=== PATIENT | female | born 1975 | race Caucasian/White ===

== ENCOUNTER → 2016-05-04 | Outpatient (CLI) | payer MEDICAID ==
[~2016-05-04] MED LIST: ABILIFY 10MG TA10 MG PO; AMOXICILLIN 8751 TAB PO; ATIVAN 0.50.5 MG/TAB PO; ATIVAN1 MG PO; BRINTELLIX10; BUSPAR5 MG PO; CLINDAMYCIN HC300 MG PO; CYMBALTA30 MG PO; DILAUDID8 M1 PO; DOXYCYCLINE 10100 MG PO; FLEXERIL 1010 MG/TAB PO; FLONASE NASAL S16 GM NS; HYDROMORPHONE HY8 MG PO; IBS MEDICATION; LAMICTAL150 MG PO; LYRICA300 MG PO; MIRENA52 MG IU; NEXIUM 20MG20 MG PO; OPANA ER20 MG PO; OPANA PO; OPANA10 MG PO; PHENERGAN 25 TA25 MG PO; PHENERGAN25 MG RC; PROAIR HFA0.09 MG/AC IH; REMERON45 MG PO; ULTRAM 50MG TAB50 MG PO; ZOFRAN 4MG T4 MG/TAB PO; ZOFRAN ODT4 MG PO; ZOFRAN ODT8 MG PO; ZOLOFT 50MG50 MG PO; [UNRECOGNIZED DRUG - REMARK]
== END ==
LOC: COL.RAD 07:26
DX: Q85.8 Other phakomatoses, not elsewhere classified (principal); M50.022 Cervical disc disorder at C5-C6 level with myelopathy; R90.89 Other abnormal findings on diagnostic imaging of central nervous system; M62.81 Muscle weakness (generalized); R20.2 Paresthesia of skin
CPT/HCPCS: A9585

== ENCOUNTER → 2016-07-26 | Outpatient (CLI) | payer MEDICAID | LOC: COL.RAD 12:25 | DX: R22.31 Localized swelling, mass and lump, right upper limb (principal) ==

== ENCOUNTER 2016-10-05 09:47 | Emergency (ER) | payer MEDICAID ==
[~2016-10-05] VITALS: Ht 160 cm; Wt 77.3 kg
[~2016-10-05 09:47] MED LIST changes: -BRINTELLIX10; -FLONASE NASAL S16 GM NS; -NEXIUM 20MG20 MG PO; -PHENERGAN 25 TA25 MG PO; -PHENERGAN25 MG RC; -PROAIR HFA0.09 MG/AC IH; -ULTRAM 50MG TAB50 MG PO; -ZOFRAN 4MG T4 MG/TAB PO; -ZOFRAN ODT4 MG PO; -ZOFRAN ODT8 MG PO
[2016-10-05 09:53] VITALS: TEMP 98.6
[2016-10-05 10:33] LABS: BASO % 0.4 % (0.0-2.0); EOS # 0.1 (0.0-0.7); EOS % 1.3 % (0-4.0); GRAN # 6.8 (1.4-6.5); GRAN % 72.7 % (42.2-75.2); HEMATOCRIT 46.4 % (37.0-47.0); HEMOGLOBIN 15.8 g/dl (12.5-16.0); LYMPH # 1.9 (1.2-3.4); LYMPH % 20.2 % (20.0-51.0); MEAN CELL VOLUME 92 fl (80.0-100.0); MEAN CORPUSCULAR HEMOGLOBIN 31 pg (27.0-31.0); MEAN CORPUSCULAR HGB CONC 34 g/dl (33.0-37.0); MONO # 0.5 (0.1-0.6); MONO % 5.1 % (1.7-9.3); PLATELET COUNT 201 K/mm3 (130-400); RED BLOOD COUNT 5.06 M/mm3 (4.10-5.30); REDCELL DISTRIBUTION WIDTH-CV 12.6 % (11.5-14.5); WHITE BLOOD COUNT 9.3 K/mm3 (4.8-10.8)
[2016-10-05 10:41] LABS: PH 5 (5-8); URINE APPEARANCE Hazy; URINE BACTERIA None Seen /hpf; URINE BILIRUBIN Positive (NEGATIVE); URINE BLOOD Negative (NEGATIVE); URINE COLOR Amber; URINE GLUCOSE Negative (NEGATIVE); URINE KETONE Trace (NEGATIVE)
[2016-10-05 11:30] LABS: ADJUSTED CALCIUM 9.4 mg/dL (8.4-10.2); ALANINE AMINOTRANSFERASE 19 U/L (9-52); ALBUMIN 4.6 gm/dL (3.5-5.0); ALKALINE PHOSPHATASE 91 U/L (50-136); ANION GAP 14 mmol/L (7-16); BILIRUBIN,TOTAL 0.8 mg/dL (0.0-1.0); BLOOD UREA NITROGEN 17 mg/dL (7-17); CALCIUM 9.9 mg/dL (8.4-10.2); CARBON DIOXIDE 25 mmol/L (22-30); CHLORIDE 104 mmol/L (98-107); GLUCOSE 106 mg/dL (74-106); LIPASE 62 U/L (23-300); POTASSIUM 3.8 mmol/L (3.4-5.0); SODIUM 143 mmol/L (137-145)
[2016-10-05 11:35] LABS: C-REACTIVE PROTEIN < 0.5 mg/dL (0.0-0.9)
[2016-10-05] MEDS ORDERED: ZOFRAN 4MG T4 MG/TAB PO (14:24)
[2016-10-05 15:03] VITALS: BP 114/64; PULSE 68
== END 2016-10-05 14:50 | disposition home or self-care (01) ==
LOC: COL.ER 09:47
PROVIDERS: Emergency Medicine
DX: R10.11 Right upper quadrant pain (principal); Q85.00 Neurofibromatosis, unspecified; G40.909 Epilepsy, unspecified, not intractable, without status epilepticus; F31.9 Bipolar disorder, unspecified
CPT/HCPCS: J1170; J2405; J7030

== ENCOUNTER 2016-10-08 12:36 | Emergency (ER) | payer MEDICAID ==
[~2016-10-08] VITALS: Ht 160 cm; Wt 75.0 kg
[~2016-10-08 12:36] MED LIST changes: +ZOFRAN 4MG T4 MG/TAB PO
[2016-10-08 12:38] VITALS: TEMP 98.1
[2016-10-08] MEDS ORDERED: BRINTELLIX10 (12:44)
[2016-10-08] MEDS ORDERED: PROAIR HFA0.09 MG/AC IH (12:45)
[2016-10-08] MEDS ORDERED: FLONASE NASAL S16 GM NS (12:45)
[2016-10-08 13:15] LABS: BASO # 0.1 (0.0-0.2); BASO % 0.5 % (0.0-2.0); EOS # 0.2 (0.0-0.7); EOS % 1.8 % (0-4.0); HEMOGLOBIN 15.4 g/dl (12.5-16.0); LYMPH # 2.6 (1.2-3.4); LYMPH % 27.6 % (20.0-51.0); MEAN CELL VOLUME 91 fl (80.0-100.0); MEAN CORPUSCULAR HEMOGLOBIN 31 pg (27.0-31.0); MEAN CORPUSCULAR HGB CONC 34 g/dl (33.0-37.0); MONO # 0.6 (0.1-0.6); MONO % 5.8 % (1.7-9.3); PLATELET COUNT 203 K/mm3 (130-400); RED BLOOD COUNT 4.96 M/mm3 (4.10-5.30); REDCELL DISTRIBUTION WIDTH-CV 12.6 % (11.5-14.5); WHITE BLOOD COUNT 9.4 K/mm3 (4.8-10.8)
[2016-10-08 13:25] LABS: PH 5 (5-8); URINE APPEARANCE Hazy; URINE BACTERIA None Seen /hpf; URINE BILIRUBIN Positive (NEGATIVE); URINE BLOOD Negative (NEGATIVE); URINE COLOR Amber; URINE GLUCOSE Negative (NEGATIVE); URINE KETONE Trace (NEGATIVE); URINE WBC 0-2 /hpf
[2016-10-08 13:28] LABS: ADJUSTED CALCIUM 8.9 mg/dL (8.4-10.2); ALANINE AMINOTRANSFERASE 17 U/L (9-52); ALBUMIN 4.6 gm/dL (3.5-5.0); ALKALINE PHOSPHATASE 80 U/L (50-136); ANION GAP 15 mmol/L (7-16); BILIRUBIN,TOTAL 0.7 mg/dL (0.0-1.0); BLOOD UREA NITROGEN 14 mg/dL (7-17); CALCIUM 9.4 mg/dL (8.4-10.2); CARBON DIOXIDE 25 mmol/L (22-30); CHLORIDE 102 mmol/L (98-107); CREATININE, serum 0.78 mg/dL (0.52-1.25); GLUCOSE 108 mg/dL (74-106); LIPASE 172 U/L (23-300); POTASSIUM 3.5 mmol/L (3.4-5.0); SODIUM 141 mmol/L (137-145)
[2016-10-08 13:31] LABS: C-REACTIVE PROTEIN < 0.5 mg/dL (0.0-0.9)
[2016-10-08] MEDS ORDERED: PHENERGAN 25 TA25 MG PO (14:05)
[2016-10-08] MEDS ORDERED: NEXIUM 20MG20 MG PO (14:06)
[2016-10-08 14:51] VITALS: BP 123/74; PULSE 67
== END 2016-10-08 14:52 | disposition home or self-care (01) ==
LOC: COL.ER 12:36
PROVIDERS: Emergency Medicine
DX: R10.11 Right upper quadrant pain (principal); R11.2 Nausea with vomiting, unspecified; R63.0 Anorexia
CPT/HCPCS: C9113; J1170; J1200; J2405; J2550; J7030

== ENCOUNTER → 2016-10-29 | Outpatient (CLI) | payer MEDICAID ==
[~2016-10-29] MED LIST changes: +BRINTELLIX10; +FLONASE NASAL S16 GM NS; +NEXIUM 20MG20 MG PO; +PHENERGAN 25 TA25 MG PO; +PHENERGAN25 MG RC; +PROAIR HFA0.09 MG/AC IH; +ULTRAM 50MG TAB50 MG PO; +ZOFRAN ODT4 MG PO; +ZOFRAN ODT8 MG PO
== END ==
LOC: COL.RAD 10:10
DX: R10.11 Right upper quadrant pain (principal); R11.2 Nausea with vomiting, unspecified
CPT/HCPCS: A9537

== ENCOUNTER 2016-12-16 10:48 | Emergency (ER) | payer MEDICAID ==
[~2016-12-16] VITALS: Ht 162.6 cm; Wt 75.0 kg
[~2016-12-16 10:48] MED LIST changes: -PHENERGAN25 MG RC; -ULTRAM 50MG TAB50 MG PO; -ZOFRAN ODT4 MG PO; -ZOFRAN ODT8 MG PO
[2016-12-16 10:50] VITALS: BP 134/86; TEMP 98.9
[2016-12-16 11:29] LABS: BASO % 0.3 % (0.0-2.0); EOS % 0.3 % (0-4.0); GRAN # 7.1 (1.4-6.5); GRAN % 81.4 % (42.2-75.2); HEMATOCRIT 46.9 % (37.0-47.0); LYMPH # 1.3 (1.2-3.4); LYMPH % 14.5 % (20.0-51.0); MEAN CELL VOLUME 91 fl (80.0-100.0); MEAN CORPUSCULAR HEMOGLOBIN 31 pg (27.0-31.0); MEAN CORPUSCULAR HGB CONC 34 g/dl (33.0-37.0); MEAN PLATELET VOLUME 12.2 fl (7.4-10.4); MONO # 0.2 (0.1-0.6); MONO % 2.8 % (1.7-9.3); PLATELET COUNT 169 K/mm3 (130-400); RED BLOOD COUNT 5.16 M/mm3 (4.10-5.30); REDCELL DISTRIBUTION WIDTH-CV 13.6 % (11.5-14.5); WHITE BLOOD COUNT 8.7 K/mm3 (4.8-10.8)
[2016-12-16 11:41] LABS: ADJUSTED CALCIUM 9.8 mg/dL (8.4-10.2); ALBUMIN 4.6 gm/dL (3.5-5.0); BILIRUBIN,TOTAL 0.6 mg/dL (0.0-1.0); C-REACTIVE PROTEIN 1.7 mg/dL (0.0-0.9); CALCIUM 10.3 mg/dL (8.4-10.2); CREATININE, serum 0.67 mg/dL (0.52-1.25); POTASSIUM 3.7 mmol/L (3.4-5.0); TOTAL PROTEIN 8.3 gm/dL (6.4-8.2)
[2016-12-16] MEDS ORDERED: ZOFRAN ODT4 MG PO (12:25)
[2016-12-16 12:47] VITALS: PULSE 82
[2016-12-16] MEDS ORDERED: PHENERGAN25 MG RC (21:05)
[2016-12-16] MEDS ORDERED: ULTRAM 50MG TAB50 MG PO (21:05)
[2016-12-16] MEDS ORDERED: ZOFRAN ODT8 MG PO (21:05)
== END 2016-12-16 12:48 | disposition home or self-care (01) ==
LOC: COL.ER 10:48
PROVIDERS: Nurse Practitioner
DX: R11.2 Nausea with vomiting, unspecified (principal); G89.29 Other chronic pain; M54.9 Dorsalgia, unspecified; F17.210 Nicotine dependence, cigarettes, uncomplicated; Z86.018 Personal history of other benign neoplasm
CPT/HCPCS: J1170; J2550; J7030

== ENCOUNTER 2016-12-16 19:17 | Emergency (ER) | payer MEDICAID ==
[~2016-12-16] VITALS: Ht 160 cm; Wt 75.0 kg
[~2016-12-16 19:17] MED LIST changes: +ZOFRAN ODT4 MG PO
[2016-12-16 19:20] VITALS: TEMP 98.6
[2016-12-16 20:15] LABS: BASO % 0.2 % (0.0-2.0); EOS % 0.2 % (0-4.0); GRAN # 7.5 (1.4-6.5); GRAN % 78.8 % (42.2-75.2); HEMOGLOBIN 15.4 g/dl (12.5-16.0); LYMPH # 1.5 (1.2-3.4); LYMPH % 15.9 % (20.0-51.0); MEAN CELL VOLUME 91 fl (80.0-100.0); MEAN CORPUSCULAR HEMOGLOBIN 31 pg (27.0-31.0); MEAN CORPUSCULAR HGB CONC 34 g/dl (33.0-37.0); MEAN PLATELET VOLUME 12.4 fl (7.4-10.4); MONO # 0.4 (0.1-0.6); MONO % 4.2 % (1.7-9.3); PLATELET COUNT 178 K/mm3 (130-400); RED BLOOD COUNT 4.97 M/mm3 (4.10-5.30); REDCELL DISTRIBUTION WIDTH-CV 13.8 % (11.5-14.5); WHITE BLOOD COUNT 9.5 K/mm3 (4.8-10.8)
[2016-12-16 20:20] LABS: PH 7 (5-8); SQUAMOUS EPITHELIAL 0-2 /hpf; URINE APPEARANCE Clear; URINE BACTERIA Rare /hpf; URINE COLOR Yellow; URINE RBC 0-2 /hpf; URINE WBC 0-2 /hpf
[2016-12-16 20:21] LABS: URINE BILIRUBIN Negative (NEGATIVE); URINE BLOOD Negative (NEGATIVE); URINE GLUCOSE Negative (NEGATIVE); URINE KETONE Negative (NEGATIVE); URINE UROBILINOGEN Negative (NEGATIVE)
[2016-12-16 20:22] LABS: ADJUSTED CALCIUM 9.6 mg/dL (8.4-10.2); ALBUMIN 4.4 gm/dL (3.5-5.0); BILIRUBIN,TOTAL 0.6 mg/dL (0.0-1.0); C-REACTIVE PROTEIN 1.2 mg/dL (0.0-0.9); CALCIUM 9.9 mg/dL (8.4-10.2); CREATININE, serum 0.61 mg/dL (0.52-1.25); POTASSIUM 3.7 mmol/L (3.4-5.0); TOTAL PROTEIN 7.9 gm/dL (6.4-8.2)
[2016-12-16 20:44] LABS: ERYTHROCYTE SEDIMENTATION RATE 14 mm/hr (0-20)
[2016-12-16] MEDS ORDERED: ULTRAM 50MG TAB50 MG PO (21:05)
[2016-12-16] MEDS ORDERED: PHENERGAN25 MG RC (21:05)
[2016-12-16] MEDS ORDERED: ZOFRAN ODT8 MG PO (21:05)
[2016-12-16 21:26] VITALS: BP 95/48; PULSE 69
== END 2016-12-16 21:27 | disposition home or self-care (01) ==
LOC: COL.ER 19:17
PROVIDERS: Emergency Medicine
DX: R11.10 Vomiting, unspecified (principal); R10.9 Unspecified abdominal pain; G89.29 Other chronic pain; M54.9 Dorsalgia, unspecified; F17.210 Nicotine dependence, cigarettes, uncomplicated; Z87.19 Personal history of other diseases of the digestive system
CPT/HCPCS: J1170; J2405; J7030; Q9967

== ENCOUNTER 2017-01-17 16:44 | Emergency (ER) | payer MEDICAID ==
[~2017-01-17] VITALS: Ht 160 cm; Wt 68.8 kg
[~2017-01-17 16:44] MED LIST changes: +PHENERGAN25 MG RC; +ULTRAM 50MG TAB50 MG PO; +ZOFRAN ODT8 MG PO
[2017-01-17 16:47] VITALS: TEMP 98.2
[2017-01-17 17:29] LABS: BASO % 0.3 % (0.0-2.0); EOS % 0.1 % (0-4.0); GRAN # 7.4 (1.4-6.5); GRAN % 77.9 % (42.2-75.2); HEMATOCRIT 50.8 % (37.0-47.0); HEMOGLOBIN 17.2 g/dl (12.5-16.0); LYMPH # 1.6 (1.2-3.4); MEAN CELL VOLUME 91 fl (80.0-100.0); MEAN CORPUSCULAR HEMOGLOBIN 31 pg (27.0-31.0); MEAN CORPUSCULAR HGB CONC 34 g/dl (33.0-37.0); MEAN PLATELET VOLUME 12.5 fl (7.4-10.4); MONO # 0.4 (0.1-0.6); MONO % 4.5 % (1.7-9.3); PLATELET COUNT 207 K/mm3 (130-400); RED BLOOD COUNT 5.57 M/mm3 (4.10-5.30); WHITE BLOOD COUNT 9.6 K/mm3 (4.8-10.8)
[2017-01-17 17:34] LABS: PH 5 (5-8); URINE APPEARANCE Hazy; URINE BACTERIA None Seen /hpf; URINE BILIRUBIN Positive (NEGATIVE); URINE BLOOD Negative (NEGATIVE); URINE COLOR Amber; URINE GLUCOSE Negative (NEGATIVE); URINE KETONE 1+ (NEGATIVE); URINE RBC 0-2 /hpf; URINE UROBILINOGEN >=4.0 mg/dL (NEGATIVE)
[2017-01-17 17:43] LABS: ADJUSTED CALCIUM 9.7 mg/dL (8.4-10.2); ALANINE AMINOTRANSFERASE 14 U/L (9-52); ALKALINE PHOSPHATASE 106 U/L (50-136); ANION GAP 15 mmol/L (7-16); BILIRUBIN,TOTAL 0.7 mg/dL (0.0-1.0); BLOOD UREA NITROGEN 19 mg/dL (7-17); CALCIUM 10.5 mg/dL (8.4-10.2); CARBON DIOXIDE 22 mmol/L (22-30); CHLORIDE 107 mmol/L (98-107); GLUCOSE 128 mg/dL (74-106); LIPASE 38 U/L (23-300); POTASSIUM 3.7 mmol/L (3.4-5.0); SODIUM 143 mmol/L (137-145); TOTAL PROTEIN 8.9 gm/dL (6.4-8.2)
[2017-01-17 17:46] LABS: C-REACTIVE PROTEIN < 0.5 mg/dL (0.0-0.9)
[2017-01-17] MEDS ORDERED: PHENERGAN25 MG RC (18:15)
[2017-01-17 18:27] VITALS: BP 114/62; PULSE 78
== END 2017-01-17 18:31 | disposition home or self-care (01) ==
LOC: COL.ER 16:44
PROVIDERS: Family Medicine
DX: E86.0 Dehydration (principal); R11.2 Nausea with vomiting, unspecified; R19.7 Diarrhea, unspecified; R10.9 Unspecified abdominal pain; Q85.00 Neurofibromatosis, unspecified
CPT/HCPCS: J1170; J2550; J7030

== ENCOUNTER 2017-02-16 18:12 | Emergency (ER) | payer MEDICAID ==
[~2017-02-16] VITALS: Ht 160 cm; Wt 70.5 kg
[2017-02-16 18:15] VITALS: TEMP 98.1
[2017-02-16 18:56] LABS: BASO % 0.3 % (0.0-2.0); EOS % 0.3 % (0-4.0); GRAN # 8.7 (1.4-6.5); GRAN % 76.3 % (42.2-75.2); HEMATOCRIT 45.3 % (37.0-47.0); HEMOGLOBIN 15.6 g/dl (12.5-16.0); LYMPH # 1.9 (1.2-3.4); LYMPH % 16.8 % (20.0-51.0); MEAN CELL VOLUME 92 fl (80.0-100.0); MEAN CORPUSCULAR HEMOGLOBIN 32 pg (27.0-31.0); MEAN CORPUSCULAR HGB CONC 34 g/dl (33.0-37.0); MONO # 0.7 (0.1-0.6); MONO % 5.8 % (1.7-9.3); PLATELET COUNT 213 K/mm3 (130-400); RED BLOOD COUNT 4.94 M/mm3 (4.10-5.30); WHITE BLOOD COUNT 11.4 K/mm3 (4.8-10.8)
[2017-02-16 19:03] LABS: COLLECTION METHOD CLEAN CATCH
[2017-02-16 19:07] LABS: ADJUSTED CALCIUM 9.7 mg/dL (8.4-10.2); ALBUMIN 4.5 gm/dL (3.5-5.0); BILIRUBIN,TOTAL 0.6 mg/dL (0.0-1.0); CALCIUM 10.1 mg/dL (8.4-10.2); CREATININE, serum 0.69 mg/dL (0.52-1.25); POTASSIUM 3.4 mmol/L (3.4-5.0); TOTAL PROTEIN 7.8 gm/dL (6.4-8.2)
[2017-02-16 19:09] LABS: MUCOUS Present /lpf; PH 5 (5-8); SQUAMOUS EPITHELIAL 0-2 /hpf; URINE APPEARANCE Clear; URINE BACTERIA None Seen /hpf; URINE BILIRUBIN Negative (NEGATIVE); URINE BLOOD 2+ (NEGATIVE); URINE COLOR Amber; URINE GLUCOSE Negative (NEGATIVE); URINE KETONE Trace (NEGATIVE); URINE LEUKOCYTE ESTERASE Negative (NEGATIVE); URINE PROTEIN(semi-quant) 1+ (NEGATIVE); URINE RBC 0-2 /hpf; URINE WBC 0-2 /hpf
[2017-02-16] MEDS ORDERED: ZOFRAN ODT4 MG PO (19:41)
[2017-02-16 19:54] VITALS: BP 119/69; PULSE 80
== END 2017-02-16 19:54 | disposition home or self-care (01) ==
LOC: COL.ER 18:12
PROVIDERS: Emergency Medicine
DX: R11.2 Nausea with vomiting, unspecified (principal); R19.7 Diarrhea, unspecified; G89.29 Other chronic pain; M54.9 Dorsalgia, unspecified; F17.210 Nicotine dependence, cigarettes, uncomplicated; Z98.890 Other specified postprocedural states
CPT/HCPCS: J1170; J2405; J7030

== ENCOUNTER 2017-03-12 12:10 | Day surgery (SDC) | payer MEDICAID ==
[~2017-03-12] VITALS: Ht 160 cm; Wt 69.5 kg
[2017-03-12 12:40] VITALS: BP 125/73; PULSE 86; TEMP 98.3
[2017-03-12] MEDS ORDERED: PRIL40 PO (12:55)
[2017-03-12] MEDS ORDERED: OPANA10 MG PO (12:56)
[2017-03-12] MEDS ORDERED: SPIRIVA RESPIMAT4 GM IH (12:57)
[2017-03-12 14:27] VITALS: BP 132/73; PULSE 70; TEMP 97.3
[2017-03-12 14:42] VITALS: BP 131/80; PULSE 75
[2017-03-12 14:57] VITALS: BP 124/75; PULSE 69
[2017-03-12 15:12] VITALS: BP 122/67; PULSE 75
== END 2017-03-12 15:43 | disposition home or self-care (01) ==
LOC: SDCO 12:10
DX: K29.30 Chronic superficial gastritis without bleeding (principal); R63.4 Abnormal weight loss; R10.11 Right upper quadrant pain; R93.3 Abnormal findings on diagnostic imaging of other parts of digestive tract; K64.0 First degree hemorrhoids; K21.9 Gastro-esophageal reflux disease without esophagitis; Q85.8 Other phakomatoses, not elsewhere classified; J45.909 Unspecified asthma, uncomplicated; G89.29 Other chronic pain; M54.9 Dorsalgia, unspecified; F17.210 Nicotine dependence, cigarettes, uncomplicated; Z79.891 Long term (current) use of opiate analgesic; G40.909 Epilepsy, unspecified, not intractable, without status epilepticus; Z68.27 Body mass index [BMI] 27.0-27.9, adult; Q85.00 Neurofibromatosis, unspecified; F32.9 Major depressive disorder, single episode, unspecified
CPT/HCPCS: OP; J2704; J3010; J7120

== ENCOUNTER 2017-03-16 19:19 | Emergency (ER) | payer MEDICAID ==
[~2017-03-16] VITALS: Ht 160 cm; Wt 63.6 kg
[~2017-03-16 19:19] MED LIST changes: +PRIL40 PO; +SPIRIVA RESPIMAT4 GM IH
[2017-03-16 19:23] VITALS: BP 140/97; TEMP 97.7
[2017-03-16 20:11] LABS: BASO # 0.1 (0.0-0.2); BASO % 0.5 % (0.0-2.0); EOS # 0.1 (0.0-0.7); GRAN # 6.7 (1.4-6.5); GRAN % 68.9 % (42.2-75.2); HEMATOCRIT 48.3 % (37.0-47.0); HEMOGLOBIN 16.3 g/dl (12.5-16.0); LYMPH # 2.3 (1.2-3.4); LYMPH % 23.2 % (20.0-51.0); MEAN CELL VOLUME 93 fl (80.0-100.0); MEAN CORPUSCULAR HEMOGLOBIN 31 pg (27.0-31.0); MEAN CORPUSCULAR HGB CONC 34 g/dl (33.0-37.0); MEAN PLATELET VOLUME 11.9 fl (7.4-10.4); MONO # 0.6 (0.1-0.6); MONO % 5.9 % (1.7-9.3); PLATELET COUNT 206 K/mm3 (130-400); WHITE BLOOD COUNT 9.8 K/mm3 (4.8-10.8)
[2017-03-16 20:11] LABS: COLLECTION METHOD CLEAN CATCH
[2017-03-16 20:22] LABS: ADJUSTED CALCIUM 9.6 mg/dL (8.4-10.2); ALBUMIN 4.6 gm/dL (3.5-5.0); BILIRUBIN,TOTAL 0.5 mg/dL (0.0-1.0); CALCIUM 10.1 mg/dL (8.4-10.2); CREATININE, serum 0.78 mg/dL (0.52-1.25); POTASSIUM 4.1 mmol/L (3.4-5.0)
[2017-03-16 20:23] LABS: MUCOUS Present /lpf; PH 6 (5-8); SQUAMOUS EPITHELIAL 0-2 /hpf; URINE APPEARANCE Clear; URINE BACTERIA None Seen /hpf; URINE BILIRUBIN Negative (NEGATIVE); URINE BLOOD Negative (NEGATIVE); URINE COLOR Yellow; URINE GLUCOSE Negative (NEGATIVE); URINE KETONE Negative (NEGATIVE); URINE LEUKOCYTE ESTERASE Negative (NEGATIVE); URINE PROTEIN(semi-quant) Negative (NEGATIVE); URINE RBC 0-2 /hpf; URINE UROBILINOGEN Negative (NEGATIVE); URINE WBC 0-2 /hpf
[2017-03-16 21:39] VITALS: PULSE 81
== END 2017-03-16 21:39 | disposition home or self-care (01) ==
LOC: COL.ER 19:19
PROVIDERS: Nurse Practitioner Primary Care
DX: R10.84 Generalized abdominal pain (principal); K21.9 Gastro-esophageal reflux disease without esophagitis; G40.909 Epilepsy, unspecified, not intractable, without status epilepticus; F41.9 Anxiety disorder, unspecified; F17.210 Nicotine dependence, cigarettes, uncomplicated
CPT/HCPCS: J2270

== ENCOUNTER 2017-03-17 14:03 | Emergency (ER) | payer MEDICAID ==
[~2017-03-17] VITALS: Ht 160 cm; Wt 65.9 kg
[2017-03-17 14:10] VITALS: BP 130/58; TEMP 98
[2017-03-17 16:30] VITALS: PULSE 90
== END 2017-03-17 16:32 | disposition home or self-care (01) ==
LOC: COL.ER 14:03
DX: G89.29 Other chronic pain (principal); R10.13 Epigastric pain; K58.9 Irritable bowel syndrome, unspecified; F17.210 Nicotine dependence, cigarettes, uncomplicated
CPT/HCPCS: J1170

== ENCOUNTER 2017-03-18 16:09 | Emergency (ER) | payer MEDICAID ==
[~2017-03-18] VITALS: Ht 160 cm; Wt 67.2 kg
[2017-03-18 16:13] VITALS: TEMP 98
[2017-03-18 16:57] VITALS: BP 127/81; PULSE 98
== END 2017-03-18 17:01 | disposition home or self-care (01) ==
LOC: COL.ER 16:09
DX: G89.29 Other chronic pain (principal); R10.11 Right upper quadrant pain; F17.210 Nicotine dependence, cigarettes, uncomplicated

== ENCOUNTER 2017-04-17 15:23 | Emergency (ER) | payer MEDICAID ==
[~2017-04-17] VITALS: Ht 160 cm; Wt 65.9 kg
[2017-04-17 15:25] VITALS: TEMP 98.5
[2017-04-17] MEDS ORDERED: BUSPAR10 MG PO (16:07)
[2017-04-17 16:30] VITALS: BP 140/78; PULSE 90
== END 2017-04-17 16:39 | disposition home or self-care (01) ==
LOC: COL.ER 15:23
DX: R51 Headache (principal); F17.210 Nicotine dependence, cigarettes, uncomplicated
CPT/HCPCS: J2270; J2550

== ENCOUNTER 2017-05-19 12:29 | Emergency (ER) | payer MEDICARE, MEDICAID ==
[~2017-05-19] VITALS: Ht 160 cm; Wt 63.6 kg
[~2017-05-19 12:29] MED LIST changes: +BUSPAR10 MG PO
[2017-05-19 12:31] VITALS: BP 138/73; TEMP 98.8
[2017-05-19 14:32] VITALS: PULSE 86
== END 2017-05-19 14:33 | disposition home or self-care (01) ==
LOC: COL.ER 12:29
DX: G43.909 Migraine, unspecified, not intractable, without status migrainosus (principal); J45.909 Unspecified asthma, uncomplicated; F17.210 Nicotine dependence, cigarettes, uncomplicated
CPT/HCPCS: J1170; J2550

== ENCOUNTER 2017-07-14 10:01 | Emergency (ER) | payer MEDICARE, MEDICAID ==
[~2017-07-14] VITALS: Ht 160 cm; Wt 65.9 kg
[2017-07-14 10:05] VITALS: TEMP 98.5
[2017-07-14 11:35] LABS: ALANINE AMINOTRANSFERASE 22 U/L (9-52); ALKALINE PHOSPHATASE 104 U/L (50-136); ANION GAP 16 mmol/L (7-16); AST,SGOT 16 U/L (15-37); BILIRUBIN,TOTAL 0.5 mg/dL (0.0-1.0); BLOOD UREA NITROGEN 13 mg/dL (7-17); C-REACTIVE PROTEIN < 0.5 mg/dL (0.0-0.9); CARBON DIOXIDE 27 mmol/L (22-30); CHLORIDE 102 mmol/L (98-107); CREATININE, serum 0.75 mg/dL (0.52-1.25); GLUCOSE 119 mg/dL (74-106); POTASSIUM 3.5 mmol/L (3.4-5.0); SODIUM 144 mmol/L (137-145); TOTAL PROTEIN 8.4 gm/dL (6.4-8.2)
[2017-07-14 11:48] LABS: BASO % 0.3 % (0.0-2.0); EOS % 0.1 % (0-4.0); GRAN # 6.7 (1.4-6.5); GRAN % 74.2 % (42.2-75.2); HEMATOCRIT 48.4 % (37.0-47.0); HEMOGLOBIN 16.8 g/dl (12.5-16.0); LYMPH # 1.8 (1.2-3.4); LYMPH % 19.9 % (20.0-51.0); MEAN CELL VOLUME 91 fl (80.0-100.0); MEAN CORPUSCULAR HEMOGLOBIN 32 pg (27.0-31.0); MEAN CORPUSCULAR HGB CONC 35 g/dl (33.0-37.0); MEAN PLATELET VOLUME 12.3 fl (7.4-10.4); MONO # 0.4 (0.1-0.6); MONO % 4.6 % (1.7-9.3); PLATELET COUNT 219 K/mm3 (130-400); RED BLOOD COUNT 5.34 M/mm3 (4.10-5.30); REDCELL DISTRIBUTION WIDTH-CV 13.2 % (11.5-14.5)
[2017-07-14] MEDS ORDERED: PERCOCET 325 MG1 TA2 PO (12:01)
[2017-07-14] MEDS ORDERED: ZOFRAN 4MG T4 MG/TAB PO (12:01)
[2017-07-14 12:09] LABS: ERYTHROCYTE SEDIMENTATION RATE 9 mm/hr (0-20)
[2017-07-14 12:12] VITALS: BP 132/82; PULSE 83
== END 2017-07-14 12:16 | disposition home or self-care (01) ==
LOC: COL.ER 10:01
PROVIDERS: Emergency Medicine
DX: Q85.00 Neurofibromatosis, unspecified (principal); J44.9 Chronic obstructive pulmonary disease, unspecified
CPT/HCPCS: J2270; J2550

== ENCOUNTER 2017-08-17 22:17 | Inpatient (IN) | payer MEDICARE, MEDICAID ==
[~2017-08-17] VITALS: Ht 160 cm; Wt 63.5 kg
[~2017-08-17 22:17] MED LIST changes: +PERCOCET 325 MG1 TA2 PO
[2017-08-17 22:42] LABS: BASO # 0.1 (0.0-0.2); BASO % 0.7 % (0.0-2.0); EOS # 0.1 (0.0-0.7); EOS % 0.8 % (0-4.0); GRAN # 9.8 (1.4-6.5); GRAN % 64.5 % (42.2-75.2); HEMATOCRIT 47.7 % (37.0-47.0); HEMOGLOBIN 16.4 g/dl (12.5-16.0); LYMPH # 4.2 (1.2-3.4); LYMPH % 27.5 % (20.0-51.0); MEAN CELL VOLUME 89 fl (80.0-100.0); MEAN CORPUSCULAR HEMOGLOBIN 31 pg (27.0-31.0); MEAN CORPUSCULAR HGB CONC 34 g/dl (33.0-37.0); MEAN PLATELET VOLUME 11.8 fl (7.4-10.4); MONO # 0.9 (0.1-0.6); MONO % 6.1 % (1.7-9.3); PLATELET COUNT 243 K/mm3 (130-400); RED BLOOD COUNT 5.34 M/mm3 (4.10-5.30); REDCELL DISTRIBUTION WIDTH-CV 13.2 % (11.5-14.5)
[2017-08-17 22:51] LABS: ALANINE AMINOTRANSFERASE 15 U/L (9-52); ALBUMIN 4.5 gm/dL (3.5-5.0); ALKALINE PHOSPHATASE 101 U/L (50-136); ANION GAP 14 mmol/L (7-16); AST,SGOT 35 U/L (15-37); BILIRUBIN,TOTAL 0.7 mg/dL (0.0-1.0); BLOOD UREA NITROGEN 18 mg/dL (7-17); C-REACTIVE PROTEIN < 0.5 mg/dL (0.0-0.9); CALCIUM 9.8 mg/dL (8.4-10.2); CARBON DIOXIDE 29 mmol/L (22-30); CHLORIDE 99 mmol/L (98-107); CREATININE, serum 0.67 mg/dL (0.52-1.25); GLUCOSE 109 mg/dL (74-106); POTASSIUM 3.4 mmol/L (3.4-5.0); SODIUM 142 mmol/L (137-145); TOTAL PROTEIN 8.8 gm/dL (6.4-8.2)
[2017-08-17 22:55] LABS: LIPASE 3218 U/L (23-300)
[2017-08-18] MEDS ORDERED: PRIL40 PO (00:08)
[2017-08-18] MEDS ORDERED: VENTOLIN0.09 MG IH (00:09)
[2017-08-18 00:50] VITALS: BP 125/66; PULSE 73; TEMP 98
[2017-08-18 04:00] VITALS: BP 98/54; PULSE 76; TEMP 98.5
[2017-08-18 06:53] LABS: BASO % 0.3 % (0.0-2.0); EOS % 0.2 % (0-4.0); GRAN # 9.2 (1.4-6.5); GRAN % 75.8 % (42.2-75.2); HEMATOCRIT 39.7 % (37.0-47.0); LYMPH # 2.2 (1.2-3.4); LYMPH % 18.3 % (20.0-51.0); MEAN CELL VOLUME 93 fl (80.0-100.0); MEAN CORPUSCULAR HEMOGLOBIN 32 pg (27.0-31.0); MEAN CORPUSCULAR HGB CONC 34 g/dl (33.0-37.0); MONO # 0.6 (0.1-0.6); MONO % 5.1 % (1.7-9.3); PLATELET COUNT 156 K/mm3 (130-400); RED BLOOD COUNT 4.27 M/mm3 (4.10-5.30); REDCELL DISTRIBUTION WIDTH-CV 13.4 % (11.5-14.5)
[2017-08-18 06:55] LABS: HEMOGLOBIN 13.6 g/dl (12.5-16.0)
[2017-08-18 06:59] LABS: ALBUMIN 3.3 gm/dL (3.5-5.0); BILIRUBIN,TOTAL 0.6 mg/dL (0.0-1.0); CALCIUM 8.5 mg/dL (8.4-10.2); CHOLESTEROL RISK RATIO 4.3; CREATININE, serum 0.62 mg/dL (0.52-1.25); POTASSIUM 3.6 mmol/L (3.4-5.0); TOTAL PROTEIN 6.3 gm/dL (6.4-8.2)
[2017-08-18 10:31] VITALS: BP 102/47; PULSE 70; TEMP 98.3
[2017-08-18 14:44] VITALS: BP 106/59; PULSE 83; TEMP 97.9
[2017-08-18 19:10] VITALS: BP 112/54; PULSE 83; TEMP 98.6
[2017-08-18 20:31] VITALS: BP 115/64; PULSE 91; TEMP 98.9
[2017-08-19 00:19] VITALS: BP 125/63; PULSE 85; TEMP 97.6
[2017-08-19 04:06] VITALS: BP 126/67; PULSE 99; TEMP 98.8
[2017-08-19 06:15] LABS: HEMATOCRIT 38.7 % (37.0-47.0); MEAN CELL VOLUME 94 fl (80.0-100.0); MEAN CORPUSCULAR HEMOGLOBIN 31 pg (27.0-31.0); MEAN CORPUSCULAR HGB CONC 34 g/dl (33.0-37.0); MEAN PLATELET VOLUME 12.1 fl (7.4-10.4); PLATELET COUNT 128 K/mm3 (130-400); RED BLOOD COUNT 4.14 M/mm3 (4.10-5.30); REDCELL DISTRIBUTION WIDTH-CV 13.2 % (11.5-14.5)
[2017-08-19 06:21] LABS: ALBUMIN 2.9 gm/dL (3.5-5.0); BILIRUBIN,TOTAL 0.5 mg/dL (0.0-1.0); CREATININE, serum 0.63 mg/dL (0.52-1.25); MAGNESIUM 2.2 mg/dL (1.6-2.3); POTASSIUM 3.4 mmol/L (3.4-5.0); TOTAL PROTEIN 5.7 gm/dL (6.4-8.2)
[2017-08-19 07:25] LABS: BAND 1 % (0-10); EOSINOPHIL 2 % (0-4); LYMPHOCYTE 10 % (20.0-51.0); NEUTROPHILS 87 % (42.0-75.2); PLATELET ESTIMATE NORMAL (NORMAL)
[2017-08-19 11:07] VITALS: BP 117/67; PULSE 100; TEMP 98.6
[2017-08-19 13:54] VITALS: BP 125/91; PULSE 93; TEMP 98.2
== END 2017-08-19 17:06 | disposition home or self-care (01) | DRG 439 ==
LOC: COL.ER 22:17 → SURG 23:51
PROVIDERS: Internal Medicine; Nurse Practitioner; Physician Assistant
DX: K85.90 Acute pancreatitis without necrosis or infection, unspecified (principal); E44.0 Moderate protein-calorie malnutrition; Q85.00 Neurofibromatosis, unspecified; F31.9 Bipolar disorder, unspecified; F17.210 Nicotine dependence, cigarettes, uncomplicated; G89.29 Other chronic pain
CPT/HCPCS: OP; 99222-AI; 99232-AI; J1170; J1650; J2270; J2405; J2550; J3010; J7030; Q9967

== ENCOUNTER 2017-08-21 13:09 | Emergency (ER) | payer MEDICARE, MEDICAID ==
[~2017-08-21] VITALS: Ht 162.6 cm; Wt 65.9 kg
[~2017-08-21 13:09] MED LIST changes: +VENTOLIN0.09 MG IH
[2017-08-21 13:13] VITALS: TEMP 98
[2017-08-21 13:52] LABS: BASO % 0.4 % (0.0-2.0); EOS # 0.1 (0.0-0.7); EOS % 1.4 % (0-4.0); GRAN # 5.5 (1.4-6.5); HEMATOCRIT 37.4 % (37.0-47.0); HEMOGLOBIN 12.6 g/dl (12.5-16.0); LYMPH # 1.3 (1.2-3.4); MEAN CELL VOLUME 92 fl (80.0-100.0); MEAN CORPUSCULAR HEMOGLOBIN 31 pg (27.0-31.0); MEAN CORPUSCULAR HGB CONC 34 g/dl (33.0-37.0); MEAN PLATELET VOLUME 12.1 fl (7.4-10.4); MONO # 0.8 (0.1-0.6); MONO % 9.8 % (1.7-9.3); PLATELET COUNT 138 K/mm3 (130-400); RED BLOOD COUNT 4.07 M/mm3 (4.10-5.30); REDCELL DISTRIBUTION WIDTH-CV 13.4 % (11.5-14.5)
[2017-08-21 14:03] LABS: ALANINE AMINOTRANSFERASE 18 U/L (9-52); ALBUMIN 3.5 gm/dL (3.5-5.0); ALKALINE PHOSPHATASE 93 U/L (50-136); ANION GAP 11 mmol/L (7-16); AST,SGOT 12 U/L (15-37); BILIRUBIN,TOTAL 0.5 mg/dL (0.0-1.0); BLOOD UREA NITROGEN 4 mg/dL (7-17); CALCIUM 8.8 mg/dL (8.4-10.2); CARBON DIOXIDE 30 mmol/L (22-30); CHLORIDE 99 mmol/L (98-107); CREATININE, serum 0.59 mg/dL (0.52-1.25); GLUCOSE 117 mg/dL (74-106); LIPASE 21 U/L (23-300); POTASSIUM 3.1 mmol/L (3.4-5.0); SODIUM 139 mmol/L (137-145); TOTAL PROTEIN 7.1 gm/dL (6.4-8.2)
[2017-08-21 14:14] LABS: C-REACTIVE PROTEIN 12.9 mg/dL (0.0-0.9); TROPONIN-I < 0.012 ng/mL (0.000-0.034)
[2017-08-21 14:58] LABS: COLLECTION METHOD CLEAN CATCH
[2017-08-21 15:38] LABS: PH 6 (5-8); SQUAMOUS EPITHELIAL 0-2 /hpf; URINE APPEARANCE Clear; URINE BACTERIA Rare /hpf; URINE BILIRUBIN Negative (NEGATIVE); URINE BLOOD Negative (NEGATIVE); URINE COLOR Yellow; URINE GLUCOSE Negative (NEGATIVE); URINE KETONE Negative (NEGATIVE); URINE LEUKOCYTE ESTERASE Negative (NEGATIVE); URINE NITRATE Negative (NEGATIVE); URINE PROTEIN(semi-quant) Negative (NEGATIVE); URINE RBC None Seen /hpf; URINE UROBILINOGEN Negative (NEGATIVE)
[2017-08-21 16:00] VITALS: BP 116/65; PULSE 76
== END 2017-08-21 16:20 | disposition home or self-care (01) ==
LOC: COL.ER 13:09
PROVIDERS: Emergency Medicine
DX: K59.00 Constipation, unspecified (principal); R06.00 Dyspnea, unspecified; R06.02 Shortness of breath; R10.12 Left upper quadrant pain; R10.13 Epigastric pain; Q85.00 Neurofibromatosis, unspecified; F31.9 Bipolar disorder, unspecified; G43.909 Migraine, unspecified, not intractable, without status migrainosus; Z98.890 Other specified postprocedural states; G40.909 Epilepsy, unspecified, not intractable, without status epilepticus; Z79.51 Long term (current) use of inhaled steroids
CPT/HCPCS: J2270; J2405; J7030

== ENCOUNTER → 2017-12-06 | Outpatient (CLI) | payer MEDICARE, MEDICAID | LOC: COL.RAD 14:00 | DX: D42.9 Neoplasm of uncertain behavior of meninges, unspecified (principal); G93.89 Other specified disorders of brain; Q85.00 Neurofibromatosis, unspecified | CPT/HCPCS: A9585 ==

== ENCOUNTER 2017-12-19 17:06 | Emergency (ER) | payer MEDICARE, MEDICAID ==
[~2017-12-19] VITALS: Ht 162.6 cm; Wt 59.1 kg
[2017-12-19 17:16] VITALS: BP 127/87; TEMP 98.9
[2017-12-19] MEDS ORDERED: ABILIFY2 MG PO (17:59)
[2017-12-19 18:43] VITALS: PULSE 89
== END 2017-12-19 18:43 | disposition home or self-care (01) ==
LOC: COL.ER 17:06
DX: R51 Headache (principal); J45.909 Unspecified asthma, uncomplicated; F31.9 Bipolar disorder, unspecified; M54.9 Dorsalgia, unspecified; G89.29 Other chronic pain; Q85.00 Neurofibromatosis, unspecified; F17.210 Nicotine dependence, cigarettes, uncomplicated; Z88.6 Allergy status to analgesic agent
CPT/HCPCS: J1170; J2550

== ENCOUNTER 2017-12-23 17:56 | Observation (INO) | payer MEDICARE, MEDICAID ==
[~2017-12-23] VITALS: Ht 160 cm; Wt 55.2 kg
[~2017-12-23 17:56] MED LIST changes: +ABILIFY2 MG PO
[2017-12-23 18:56] LABS: BASO % 0.3 % (0.0-2.0); GRAN % 79.5 % (42.2-75.2); HEMATOCRIT 49.5 % (37.0-47.0); HEMOGLOBIN 17.2 g/dl (12.5-16.0); LYMPH # 1.5 (1.2-3.4); LYMPH % 14.7 % (20.0-51.0); MEAN CELL VOLUME 87 fl (80.0-100.0); MEAN CORPUSCULAR HEMOGLOBIN 30 pg (27.0-31.0); MEAN CORPUSCULAR HGB CONC 35 g/dl (33.0-37.0); MEAN PLATELET VOLUME 11.8 fl (7.4-10.4); MONO # 0.5 (0.1-0.6); PLATELET COUNT 189 K/mm3 (130-400); REDCELL DISTRIBUTION WIDTH-CV 13.2 % (11.5-14.5)
[2017-12-23 19:14] LABS: ALBUMIN 4.4 gm/dL (3.5-5.0); BILIRUBIN,TOTAL 0.7 mg/dL (0.0-1.0); CREATININE, serum 0.65 mg/dL (0.52-1.25); POTASSIUM 3.5 mmol/L (3.4-5.0)
[2017-12-23 19:30] LABS: PROLACTIN 11.5 ng/mL (3.0-18.6)
[2017-12-23 22:11] LABS: COLLECTION METHOD CLEAN CATCH
[2017-12-23 22:23] LABS: MUCOUS Present /lpf; PH 5 (5-8); URINE APPEARANCE Hazy; URINE BACTERIA Rare /hpf; URINE BILIRUBIN Negative (NEGATIVE); URINE BLOOD 1+ (NEGATIVE); URINE COLOR Amber; URINE GLUCOSE Negative (NEGATIVE); URINE KETONE 1+ (NEGATIVE); URINE LEUKOCYTE ESTERASE Negative (NEGATIVE); URINE NITRATE Negative (NEGATIVE); URINE PROTEIN(semi-quant) 1+ (NEGATIVE); URINE RBC 0-2 /hpf; URINE UROBILINOGEN Negative (NEGATIVE)
[2017-12-23 23:59] VITALS: BP 122/65; PULSE 81
[2017-12-24 01:30] LABS: TRICYCLIC ANTIDEPRESS URINE NEGATIVE
[2017-12-24 05:20] VITALS: BP 135/58; PULSE 71; TEMP 97.8
[2017-12-24 06:30] LABS: BASO % 0.4 % (0.0-2.0); EOS % 0.3 % (0-4.0); GRAN # 6.2 (1.4-6.5); GRAN % 69.7 % (42.2-75.2); HEMATOCRIT 41.5 % (37.0-47.0); LYMPH % 22.8 % (20.0-51.0); MEAN CELL VOLUME 90 fl (80.0-100.0); MEAN CORPUSCULAR HEMOGLOBIN 30 pg (27.0-31.0); MEAN CORPUSCULAR HGB CONC 34 g/dl (33.0-37.0); MEAN PLATELET VOLUME 12.3 fl (7.4-10.4); MONO # 0.6 (0.1-0.6); MONO % 6.4 % (1.7-9.3); PLATELET COUNT 160 K/mm3 (130-400); RED BLOOD COUNT 4.63 M/mm3 (4.10-5.30); REDCELL DISTRIBUTION WIDTH-CV 13.4 % (11.5-14.5)
[2017-12-24 06:44] LABS: CALCIUM 8.8 mg/dL (8.4-10.2); CREATININE, serum 0.6 mg/dL (0.52-1.25); POTASSIUM 3.7 mmol/L (3.4-5.0)
[2017-12-24 07:30] VITALS: BP 136/68; PULSE 70; TEMP 99
[2017-12-24 09:20] LABS: MAGNESIUM 2.2 mg/dL (1.6-2.3); PHOSPHOROUS 3.1 mg/dL (2.5-4.5)
[2017-12-24 09:22] LABS: CREATINE KINASE < 20 U/L (30-135)
[2017-12-24 11:23] VITALS: BP 101/54; PULSE 79; TEMP 98
== END 2017-12-24 17:45 | disposition home or self-care (01) ==
LOC: COL.ER 17:56 → MEDICAL 22:10
PROVIDERS: Emergency Medicine; Hospitalist; Nurse Practitioner Family
DX: R41.82 Altered mental status, unspecified (principal); Q85.00 Neurofibromatosis, unspecified; G40.909 Epilepsy, unspecified, not intractable, without status epilepticus; J45.909 Unspecified asthma, uncomplicated; G43.809 Other migraine, not intractable, without status migrainosus; F31.9 Bipolar disorder, unspecified; J44.9 Chronic obstructive pulmonary disease, unspecified; F17.210 Nicotine dependence, cigarettes, uncomplicated; Z91.012 Allergy to eggs; Z91.018 Allergy to other foods; Z88.8 Allergy status to other drugs, medicaments and biological substances
CPT/HCPCS: G0378; J3480; J7030

== ENCOUNTER 2018-01-24 17:53 | Emergency (ER) | payer MEDICARE, MEDICAID ==
[~2018-01-24] VITALS: Ht 160 cm; Wt 56.8 kg
[2018-01-24 18:05] VITALS: BP 127/63; PULSE 90; TEMP 98
== END 2018-01-24 19:21 | disposition home or self-care (01) ==
LOC: COL.ER 17:53
DX: S50.12XA Contusion of left forearm, initial encounter (principal); F31.9 Bipolar disorder, unspecified; M79.7 Fibromyalgia; F17.210 Nicotine dependence, cigarettes, uncomplicated; Z79.51 Long term (current) use of inhaled steroids; W22.8XXA Striking against or struck by other objects, initial encounter

== ENCOUNTER 2018-02-21 09:40 | Emergency (ER) | payer MEDICARE, MEDICAID ==
[~2018-02-21] VITALS: Ht 160 cm; Wt 54.5 kg
[2018-02-21 09:45] VITALS: TEMP 97.4
[2018-02-21] MEDS ORDERED: VIMPAT100 MG PO (09:57)
[2018-02-21 10:26] LABS: BASO % 0.5 % (0.0-2.0); EOS # 0.1 (0.0-0.7); EOS % 0.9 % (0-4.0); GRAN # 6.1 (1.4-6.5); GRAN % 76.6 % (42.2-75.2); HEMATOCRIT 46.5 % (37.0-47.0); HEMOGLOBIN 15.7 g/dl (12.5-16.0); LYMPH # 1.3 (1.2-3.4); LYMPH % 15.8 % (20.0-51.0); MEAN CELL VOLUME 90 fl (80.0-100.0); MEAN CORPUSCULAR HEMOGLOBIN 30 pg (27.0-31.0); MEAN CORPUSCULAR HGB CONC 34 g/dl (33.0-37.0); MEAN PLATELET VOLUME 11.9 fl (7.4-10.4); MONO # 0.5 (0.1-0.6); MONO % 5.9 % (1.7-9.3); PLATELET COUNT 186 K/mm3 (130-400); RED BLOOD COUNT 5.19 M/mm3 (4.10-5.30)
[2018-02-21 10:38] LABS: ALBUMIN 3.9 gm/dL (3.5-5.0); BILIRUBIN,TOTAL 0.4 mg/dL (0.0-1.0); CALCIUM 9.2 mg/dL (8.4-10.2); CREATININE, serum 0.62 mg/dL (0.52-1.25); POTASSIUM 4.1 mmol/L (3.4-5.0)
[2018-02-21 10:54] LABS: PROLACTIN 37.3 ng/mL (3.0-18.6)
[2018-02-21 11:30] LABS: COLLECTION METHOD CLEAN CATCH
[2018-02-21 11:36] LABS: MUCOUS Present /lpf; PH 6 (5-8); SQUAMOUS EPITHELIAL 0-2 /hpf; URINE APPEARANCE Clear; URINE BACTERIA Rare /hpf; URINE BILIRUBIN Negative (NEGATIVE); URINE BLOOD Negative (NEGATIVE); URINE COLOR Yellow; URINE GLUCOSE Negative (NEGATIVE); URINE KETONE Negative (NEGATIVE); URINE LEUKOCYTE ESTERASE Negative (NEGATIVE); URINE NITRATE Negative (NEGATIVE); URINE PROTEIN(semi-quant) Negative (NEGATIVE); URINE RBC 0-2 /hpf; URINE UROBILINOGEN Negative (NEGATIVE)
[2018-02-21 11:45] LABS: TRICYCLIC ANTIDEPRESS URINE NEGATIVE
[2018-02-21 12:55] VITALS: BP 105/61; PULSE 75
== END 2018-02-21 14:05 | disposition home or self-care (01) ==
LOC: COL.ER 09:40
PROVIDERS: Emergency Medicine
DX: G40.909 Epilepsy, unspecified, not intractable, without status epilepticus (principal); R51 Headache; R42 Dizziness and giddiness; Z79.51 Long term (current) use of inhaled steroids
CPT/HCPCS: J0780; J1170; J2060; J7030

== ENCOUNTER 2018-02-23 20:43 | Emergency (ER) | payer MEDICARE, MEDICAID ==
[~2018-02-23] VITALS: Ht 165.1 cm; Wt 61.4 kg
[~2018-02-23 20:43] MED LIST changes: +VIMPAT100 MG PO
[2018-02-23 20:48] VITALS: TEMP 98.5
[2018-02-23 21:04] LABS: BASO % 0.4 % (0.0-2.0); EOS % 0.3 % (0-4.0); GRAN # 6.4 (1.4-6.5); GRAN % 69.3 % (42.2-75.2); HEMATOCRIT 48.3 % (37.0-47.0); HEMOGLOBIN 16.4 g/dl (12.5-16.0); LYMPH # 2.1 (1.2-3.4); LYMPH % 22.5 % (20.0-51.0); MEAN CELL VOLUME 89 fl (80.0-100.0); MEAN CORPUSCULAR HEMOGLOBIN 30 pg (27.0-31.0); MEAN CORPUSCULAR HGB CONC 34 g/dl (33.0-37.0); MEAN PLATELET VOLUME 12.1 fl (7.4-10.4); MONO # 0.7 (0.1-0.6); MONO % 7.2 % (1.7-9.3); PLATELET COUNT 193 K/mm3 (130-400); RED BLOOD COUNT 5.43 M/mm3 (4.10-5.30); REDCELL DISTRIBUTION WIDTH-CV 13.1 % (11.5-14.5)
[2018-02-23 21:17] LABS: ALANINE AMINOTRANSFERASE 22 U/L (9-52); ALBUMIN 4.1 gm/dL (3.5-5.0); ALKALINE PHOSPHATASE 76 U/L (50-136); ANION GAP 5 mmol/L (7-16); AST,SGOT 10 U/L (15-37); BILIRUBIN,TOTAL 0.4 mg/dL (0.0-1.0); BLOOD UREA NITROGEN 15 mg/dL (7-17); CALCIUM 9.4 mg/dL (8.4-10.2); CARBON DIOXIDE 29 mmol/L (22-30); CHLORIDE 109 mmol/L (98-107); GLUCOSE 119 mg/dL (74-106); POTASSIUM 3.5 mmol/L (3.4-5.0); SODIUM 142 mmol/L (137-145); TOTAL PROTEIN 7.3 gm/dL (6.4-8.2)
[2018-02-23 21:26] LABS: ACETAMINOPHEN < 10 ug/mL (10-30); ALCOHOL(ethanol),MEDICAL < 10 mg/dL; C-REACTIVE PROTEIN < 0.5 mg/dL (0.0-0.9); SALICYLATE < 1.0 mg/dL
[2018-02-23 21:30] LABS: PROLACTIN 37.2 ng/mL (3.0-18.6)
[2018-02-23 21:42] LABS: COLLECTION METHOD CATHETER
[2018-02-23 21:49] LABS: MUCOUS Present /lpf; PH 5 (5-8); URINE APPEARANCE Clear; URINE BACTERIA None Seen /hpf; URINE BILIRUBIN Negative (NEGATIVE); URINE BLOOD Negative (NEGATIVE); URINE COLOR Amber; URINE GLUCOSE Negative (NEGATIVE); URINE KETONE Trace (NEGATIVE); URINE LEUKOCYTE ESTERASE Negative (NEGATIVE); URINE NITRATE Negative (NEGATIVE); URINE PROTEIN(semi-quant) 1+ (NEGATIVE)
[2018-02-23 21:56] LABS: TRICYCLIC ANTIDEPRESS URINE NEGATIVE
[2018-02-23 22:38] VITALS: BP 119/71; PULSE 81
[2018-02-24] MEDS ORDERED: OPANA ER20 M1 PO (09:07)
[2018-02-24] MEDS ORDERED: FYCOMPA2 MG PO (16:24)
== END 2018-02-23 22:52 | disposition home or self-care (01) ==
LOC: COL.ER 20:43
PROVIDERS: Emergency Medicine
DX: G40.909 Epilepsy, unspecified, not intractable, without status epilepticus (principal); J45.909 Unspecified asthma, uncomplicated; F31.9 Bipolar disorder, unspecified; F17.210 Nicotine dependence, cigarettes, uncomplicated
CPT/HCPCS: G0463; J1170; J2060; J2405; J7030

== ENCOUNTER 2018-02-24 08:45 | Inpatient (IN) | payer MEDICARE, MEDICAID ==
[~2018-02-24] VITALS: Ht 160 cm; Wt 63.2 kg
[2018-02-24] MEDS ORDERED: OPANA ER20 M1 PO (09:07)
[2018-02-24 09:18] LABS: BASO % 0.6 % (0.0-2.0); EOS # 0.1 (0.0-0.7); EOS % 1.1 % (0-4.0); GRAN # 4.2 (1.4-6.5); GRAN % 64.5 % (42.2-75.2); HEMATOCRIT 45.7 % (37.0-47.0); HEMOGLOBIN 15.4 g/dl (12.5-16.0); LYMPH # 1.7 (1.2-3.4); MEAN CELL VOLUME 89 fl (80.0-100.0); MEAN CORPUSCULAR HEMOGLOBIN 30 pg (27.0-31.0); MEAN CORPUSCULAR HGB CONC 34 g/dl (33.0-37.0); MEAN PLATELET VOLUME 11.8 fl (7.4-10.4); MONO # 0.5 (0.1-0.6); MONO % 7.3 % (1.7-9.3); PLATELET COUNT 161 K/mm3 (130-400); RED BLOOD COUNT 5.11 M/mm3 (4.10-5.30); REDCELL DISTRIBUTION WIDTH-CV 13.1 % (11.5-14.5)
[2018-02-24 09:36] LABS: ALANINE AMINOTRANSFERASE 23 U/L (9-52); ALBUMIN 3.6 gm/dL (3.5-5.0); ALKALINE PHOSPHATASE 70 U/L (50-136); ANION GAP 3 mmol/L (7-16); AST,SGOT 9 U/L (15-37); BILIRUBIN,TOTAL 0.3 mg/dL (0.0-1.0); BLOOD UREA NITROGEN 16 mg/dL (7-17); CALCIUM 8.9 mg/dL (8.4-10.2); CARBON DIOXIDE 28 mmol/L (22-30); CHLORIDE 111 mmol/L (98-107); CREATININE, serum 0.67 mg/dL (0.52-1.25); GLUCOSE 94 mg/dL (74-106); POTASSIUM 3.5 mmol/L (3.4-5.0); SODIUM 142 mmol/L (137-145); TOTAL PROTEIN 6.5 gm/dL (6.4-8.2)
[2018-02-24 09:39] LABS: ACETAMINOPHEN < 10 ug/mL (10-30); ALCOHOL(ethanol),MEDICAL < 10 mg/dL; SALICYLATE < 1.0 mg/dL
[2018-02-24 09:52] LABS: PROLACTIN 43.9 ng/mL (3.0-18.6)
[2018-02-24 12:40] VITALS: BP 121/73; PULSE 77; TEMP 98
[2018-02-24] MEDS ORDERED: FYCOMPA2 MG PO (16:24)
[2018-02-24 16:59] VITALS: BP 126/56; PULSE 76; TEMP 98.1
[2018-02-24 20:20] VITALS: BP 107/59; PULSE 73; TEMP 98
[2018-02-24 20:54] LABS: TRICYCLIC ANTIDEPRESS URINE NEGATIVE
[2018-02-25 00:28] VITALS: BP 104/63; PULSE 71; TEMP 97.8
[2018-02-25 04:12] VITALS: BP 132/72; PULSE 66; TEMP 97.7
[2018-02-25 06:17] LABS: BASO # 0.1 (0.0-0.2); BASO % 0.7 % (0.0-2.0); EOS # 0.1 (0.0-0.7); EOS % 1.6 % (0-4.0); GRAN % 54.3 % (42.2-75.2); HEMATOCRIT 38.3 % (37.0-47.0); LYMPH # 2.6 (1.2-3.4); MEAN CELL VOLUME 91 fl (80.0-100.0); MEAN CORPUSCULAR HEMOGLOBIN 31 pg (27.0-31.0); MEAN CORPUSCULAR HGB CONC 34 g/dl (33.0-37.0); MEAN PLATELET VOLUME 12.9 fl (7.4-10.4); MONO # 0.6 (0.1-0.6); MONO % 8.1 % (1.7-9.3); PLATELET COUNT 141 K/mm3 (130-400); REDCELL DISTRIBUTION WIDTH-CV 13.2 % (11.5-14.5)
[2018-02-25 06:28] LABS: CREATININE, serum 0.59 mg/dL (0.52-1.25); HEMOGLOBIN 12.9 g/dl (12.5-16.0); POTASSIUM 3.5 mmol/L (3.4-5.0)
[2018-02-25 07:58] VITALS: BP 122/71; PULSE 69; TEMP 98.1
[2018-02-25] MEDS ORDERED: BRIVIACT25 MG PO (11:40)
[2018-02-25] MEDS ORDERED: PERIDEX (CHLOR480 ML MM (11:44)
[2018-02-25 11:48] VITALS: BP 107/55; PULSE 74; TEMP 97.5
== END 2018-02-25 14:31 | disposition home or self-care (01) | DRG 101 ==
LOC: COL.ER 08:45 → MEDICAL 10:31 → COL.ER 10:31 → MEDICAL 10:32
PROVIDERS: Emergency Medicine; Hospitalist; Psychiatry & Neurology Neurology
DX: G40.909 Epilepsy, unspecified, not intractable, without status epilepticus (principal); F17.210 Nicotine dependence, cigarettes, uncomplicated; F31.9 Bipolar disorder, unspecified; Q85.01 Neurofibromatosis, type 1; G43.909 Migraine, unspecified, not intractable, without status migrainosus; J45.909 Unspecified asthma, uncomplicated; G89.29 Other chronic pain; D42.0 Neoplasm of uncertain behavior of cerebral meninges; H54.61 Unqualified visual loss, right eye, normal vision left eye; H53.8 Other visual disturbances
CPT/HCPCS: 99239; A9585; J2060; J2405; J7030

== ENCOUNTER 2018-05-30 08:03 | Emergency (ER) | payer MEDICARE, MEDICAID ==
[~2018-05-30] VITALS: Ht 160 cm; Wt 56.8 kg
[~2018-05-30 08:03] MED LIST changes: +BRIVIACT25 MG PO; +FYCOMPA2 MG PO; +OPANA ER20 M1 PO; +PERIDEX (CHLOR480 ML MM
[2018-05-30 08:09] VITALS: TEMP 98.4
[2018-05-30 08:40] LABS: BASO % 0.4 % (0.0-2.0); EOS % 0.1 % (0-4.0); GRAN # 5.8 (1.4-6.5); GRAN % 70.9 % (42.2-75.2); HEMOGLOBIN 17.2 g/dl (12.5-16.0); LYMPH # 1.7 (1.2-3.4); LYMPH % 21.4 % (20.0-51.0); MEAN CELL VOLUME 89 fl (80.0-100.0); MEAN CORPUSCULAR HEMOGLOBIN 31 pg (27.0-31.0); MEAN CORPUSCULAR HGB CONC 34 g/dl (33.0-37.0); MEAN PLATELET VOLUME 11.7 fl (7.4-10.4); MONO # 0.6 (0.1-0.6); MONO % 6.8 % (1.7-9.3); PLATELET COUNT 238 K/mm3 (130-400); RED BLOOD COUNT 5.64 M/mm3 (4.10-5.30); REDCELL DISTRIBUTION WIDTH-CV 13.4 % (11.5-14.5)
[2018-05-30 08:51] LABS: ALBUMIN 4.4 gm/dL (3.5-5.0); BILIRUBIN,TOTAL 0.6 mg/dL (0.0-1.0); CREATININE, serum 0.69 mg/dL (0.52-1.25); POTASSIUM 3.5 mmol/L (3.4-5.0); TOTAL PROTEIN 7.8 gm/dL (6.4-8.2)
[2018-05-30 09:07] LABS: PROLACTIN 25.1 ng/mL (3.0-18.6)
[2018-05-30 10:10] LABS: COLLECTION METHOD CLEAN CATCH
[2018-05-30 10:20] LABS: MUCOUS Present /lpf; PH 5 (5-8); URINE APPEARANCE Hazy; URINE BACTERIA None Seen /hpf; URINE BILIRUBIN Positive (NEGATIVE); URINE BLOOD Negative (NEGATIVE); URINE COLOR Amber; URINE GLUCOSE Negative (NEGATIVE); URINE KETONE Trace (NEGATIVE); URINE LEUKOCYTE ESTERASE Negative (NEGATIVE); URINE NITRATE Negative (NEGATIVE); URINE PROTEIN(semi-quant) 2+ (NEGATIVE); URINE RBC 0-2 /hpf; URINE UROBILINOGEN >=4.0 mg/dL (NEGATIVE)
[2018-05-30] MEDS ORDERED: LYRICA300 MG PO (10:23)
[2018-05-30 10:49] LABS: TRICYCLIC ANTIDEPRESS URINE NEGATIVE
[2018-05-30 11:31] VITALS: BP 108/60; PULSE 86
== END 2018-05-30 11:33 | disposition home or self-care (01) ==
LOC: COL.ER 08:03
PROVIDERS: Emergency Medicine
DX: G40.909 Epilepsy, unspecified, not intractable, without status epilepticus (principal)
CPT/HCPCS: J1630; J2060; J7040

== ENCOUNTER → 2018-07-23 | Outpatient (CLI) | payer MEDICARE, MEDICAID | LOC: COL.RAD 16:33 | DX: J40 Bronchitis, not specified as acute or chronic (principal) ==

== ENCOUNTER 2018-08-13 23:54 | Emergency (ER) | payer MEDICARE, MEDICAID ==
[~2018-08-13] VITALS: Ht 160 cm; Wt 52.3 kg
[2018-08-14 00:01] VITALS: TEMP 99.7
[2018-08-14 00:36] LABS: BASO % 0.5 % (0.0-2.0); EOS # 0.1 (0.0-0.7); EOS % 2.1 % (0-4.0); GRAN % 63.6 % (42.2-75.2); HEMOGLOBIN 14.9 g/dl (12.5-16.0); LYMPH # 1.7 (1.2-3.4); LYMPH % 26.8 % (20.0-51.0); MEAN CELL VOLUME 92 fl (80.0-100.0); MEAN CORPUSCULAR HEMOGLOBIN 31 pg (27.0-31.0); MEAN CORPUSCULAR HGB CONC 34 g/dl (33.0-37.0); MEAN PLATELET VOLUME 11.4 fl (7.4-10.4); MONO # 0.4 (0.1-0.6); MONO % 6.5 % (1.7-9.3); PLATELET COUNT 163 K/mm3 (130-400); RED BLOOD COUNT 4.81 M/mm3 (4.10-5.30); REDCELL DISTRIBUTION WIDTH-CV 13.4 % (11.5-14.5)
[2018-08-14] MEDS ORDERED: ATIVAN 0.50.5 MG/TAB PO (00:36)
[2018-08-14 00:51] LABS: ALBUMIN 3.6 gm/dL (3.5-5.0); BILIRUBIN,TOTAL 0.3 mg/dL (0.0-1.0); CALCIUM 9.2 mg/dL (8.4-10.2); CREATININE, serum 0.7 (0.52-1.25); POTASSIUM 3.6 mmol/L (3.4-5.0); TOTAL PROTEIN 6.8 gm/dL (6.4-8.2)
[2018-08-14 01:05] LABS: C-REACTIVE PROTEIN 0.8 mg/dL (0.0-0.9)
[2018-08-14] MEDS ORDERED: ZOFRAN ODT4 MG PO (01:16)
[2018-08-14 01:43] VITALS: BP 123/73; PULSE 73
== END 2018-08-14 01:44 | disposition home or self-care (01) ==
LOC: COL.ER 23:54
PROVIDERS: Emergency Medicine
DX: R11.10 Vomiting, unspecified (principal); G89.29 Other chronic pain; G43.909 Migraine, unspecified, not intractable, without status migrainosus; F31.9 Bipolar disorder, unspecified; R56.9 Unspecified convulsions; F17.210 Nicotine dependence, cigarettes, uncomplicated; Z86.018 Personal history of other benign neoplasm; Z98.890 Other specified postprocedural states
CPT/HCPCS: J1170; J2405; J2550; J7030

== ENCOUNTER 2018-08-27 23:44 | Emergency (ER) | payer MEDICARE, MEDICAID ==
[~2018-08-27] VITALS: Ht 160 cm; Wt 47.7 kg
[2018-08-27 23:50] VITALS: TEMP 98.3
[2018-08-28 00:18] LABS: BASO % 0.4 % (0.0-2.0); EOS # 0.1 (0.0-0.7); EOS % 0.4 % (0-4.0); GRAN # 7.8 (1.4-6.5); GRAN % 69.5 % (42.2-75.2); HEMOGLOBIN 16.2 g/dl (12.5-16.0); LYMPH # 2.3 (1.2-3.4); LYMPH % 20.8 % (20.0-51.0); MEAN CELL VOLUME 91 fl (80.0-100.0); MEAN CORPUSCULAR HEMOGLOBIN 31 pg (27.0-31.0); MEAN CORPUSCULAR HGB CONC 34 g/dl (33.0-37.0); MONO % 8.5 % (1.7-9.3); PLATELET COUNT 216 K/mm3 (130-400); REDCELL DISTRIBUTION WIDTH-CV 13.8 % (11.5-14.5)
[2018-08-28] MEDS ORDERED: BRIVIACT25 MG PO (00:26)
[2018-08-28 00:36] LABS: ALANINE AMINOTRANSFERASE < 6 U/L (9-52); ALBUMIN 3.9 gm/dL (3.5-5.0); ALKALINE PHOSPHATASE 117 U/L (50-136); ANION GAP 9 mmol/L (7-16); AST,SGOT 17 U/L (15-37); BILIRUBIN,TOTAL 0.2 mg/dL (0.0-1.0); BLOOD UREA NITROGEN 10 mg/dL (7-17); CALCIUM 9.5 mg/dL (8.4-10.2); CARBON DIOXIDE 25 mmol/L (22-30); CHLORIDE 105 mmol/L (98-107); CREATININE, serum 0.74 (0.52-1.25); GLUCOSE 102 mg/dL (74-106); POTASSIUM 3.9 mmol/L (3.4-5.0); SODIUM 139 mmol/L (137-145); TOTAL PROTEIN 7.3 gm/dL (6.4-8.2)
[2018-08-28 01:26] LABS: PROLACTIN 36.9 ng/mL (3.0-18.6)
[2018-08-28 01:52] LABS: COLLECTION METHOD CLEAN CATCH
[2018-08-28 01:58] LABS: PH 8 (5-8); SQUAMOUS EPITHELIAL None Seen /hpf; URINE APPEARANCE Clear; URINE BACTERIA Rare /hpf; URINE BILIRUBIN Negative (NEGATIVE); URINE BLOOD Negative (NEGATIVE); URINE COLOR Straw; URINE GLUCOSE Negative (NEGATIVE); URINE KETONE Negative (NEGATIVE); URINE LEUKOCYTE ESTERASE Negative (NEGATIVE); URINE NITRATE Negative (NEGATIVE); URINE PROTEIN(semi-quant) Negative (NEGATIVE); URINE RBC None Seen /hpf; URINE UROBILINOGEN Negative (NEGATIVE)
[2018-08-28 02:21] VITALS: BP 127/70; PULSE 80
== END 2018-08-28 02:30 | disposition home or self-care (01) ==
LOC: COL.ER 23:44
PROVIDERS: Emergency Medicine
DX: G40.909 Epilepsy, unspecified, not intractable, without status epilepticus (principal); F17.210 Nicotine dependence, cigarettes, uncomplicated; F31.9 Bipolar disorder, unspecified
CPT/HCPCS: J2060; J7030

== ENCOUNTER 2018-08-28 09:45 | Emergency (ER) | payer MEDICARE, MEDICAID ==
[~2018-08-28] VITALS: Ht 170.2 cm; Wt 50.0 kg
[2018-08-28 09:51] VITALS: TEMP 98.1
[2018-08-28 10:18] LABS: BASO % 0.3 % (0.0-2.0); EOS % 0.4 % (0-4.0); GRAN # 6.1 (1.4-6.5); GRAN % 68.6 % (42.2-75.2); HEMATOCRIT 49.4 % (37.0-47.0); HEMOGLOBIN 16.1 g/dl (12.5-16.0); LYMPH % 22.9 % (20.0-51.0); MEAN CELL VOLUME 92 fl (80.0-100.0); MEAN CORPUSCULAR HEMOGLOBIN 30 pg (27.0-31.0); MEAN CORPUSCULAR HGB CONC 33 g/dl (33.0-37.0); MEAN PLATELET VOLUME 12.2 fl (7.4-10.4); MONO # 0.6 (0.1-0.6); MONO % 7.2 % (1.7-9.3); PLATELET COUNT 193 K/mm3 (130-400); RED BLOOD COUNT 5.35 M/mm3 (4.10-5.30); REDCELL DISTRIBUTION WIDTH-CV 13.9 % (11.5-14.5)
[2018-08-28 10:25] LABS: ALBUMIN 3.7 gm/dL (3.5-5.0); BILIRUBIN,TOTAL 0.5 mg/dL (0.0-1.0); CALCIUM 9.4 mg/dL (8.4-10.2); CREATININE, serum 0.75 (0.52-1.25); TOTAL PROTEIN 6.8 gm/dL (6.4-8.2)
[2018-08-28 13:23] VITALS: BP 134/73; PULSE 75
== END 2018-08-28 13:23 | disposition home or self-care (01) ==
LOC: COL.ER 09:45
PROVIDERS: Emergency Medicine
DX: G40.89 Other seizures (principal)
CPT/HCPCS: J1630; J2060; J7030

== ENCOUNTER 2018-11-26 19:07 | Emergency (ER) | payer MEDICARE, MEDICAID ==
[~2018-11-26] VITALS: Ht 162.6 cm; Wt 47.7 kg
[2018-11-26 19:12] VITALS: TEMP 98.5
[2018-11-26 20:08] LABS: BASO # 0.1 (0.0-0.2); BASO % 0.7 % (0.0-2.0); EOS # 0.1 (0.0-0.7); EOS % 0.9 % (0-4.0); GRAN # 5.8 (1.4-6.5); GRAN % 66.5 % (42.2-75.2); HEMATOCRIT 46.2 % (37.0-47.0); HEMOGLOBIN 15.4 g/dl (12.5-16.0); LYMPH # 2.2 (1.2-3.4); LYMPH % 25.7 % (20.0-51.0); MEAN CELL VOLUME 92 fl (80.0-100.0); MEAN CORPUSCULAR HEMOGLOBIN 31 pg (27.0-31.0); MEAN CORPUSCULAR HGB CONC 33 g/dl (33.0-37.0); MONO # 0.5 (0.1-0.6); PLATELET COUNT 181 K/mm3 (130-400); RED BLOOD COUNT 5.04 M/mm3 (4.10-5.30); REDCELL DISTRIBUTION WIDTH-CV 14.2 % (11.5-14.5)
[2018-11-26 20:15] LABS: ALBUMIN 3.8 gm/dL (3.5-5.0); BILIRUBIN,TOTAL 0.6 mg/dL (0.0-1.0); CALCIUM 9.3 mg/dL (8.4-10.2); CREATININE, serum 0.71 (0.52-1.25); POTASSIUM 3.7 mmol/L (3.4-5.0); TOTAL PROTEIN 6.7 gm/dL (6.4-8.2)
[2018-11-26 21:22] LABS: COLLECTION METHOD CLEAN CATCH
[2018-11-26 21:28] LABS: MUCOUS Present /lpf; PH 6 (5-8); SQUAMOUS EPITHELIAL 0-2 /hpf; URINE APPEARANCE Clear; URINE BACTERIA Rare /hpf; URINE BILIRUBIN Negative (NEGATIVE); URINE BLOOD Negative (NEGATIVE); URINE COLOR Yellow; URINE GLUCOSE Negative (NEGATIVE); URINE KETONE Negative (NEGATIVE); URINE LEUKOCYTE ESTERASE Negative (NEGATIVE); URINE NITRATE Negative (NEGATIVE); URINE PROTEIN(semi-quant) 1+ (NEGATIVE); URINE RBC 0-2 /hpf; URINE UROBILINOGEN Negative (NEGATIVE); URINE WBC 0-2 /hpf
[2018-11-26] MEDS ORDERED: AMBIEN 10MG10 MG PO (22:00)
[2018-11-26 22:01] VITALS: BP 108/65; PULSE 72
== END 2018-11-26 22:28 | disposition home or self-care (01) ==
LOC: COL.ER 19:07
PROVIDERS: Emergency Medicine
DX: F30.9 Manic episode, unspecified (principal); G47.00 Insomnia, unspecified; F17.210 Nicotine dependence, cigarettes, uncomplicated; J45.909 Unspecified asthma, uncomplicated
CPT/HCPCS: J0780; J1200; J1630; J7030

== ENCOUNTER → 2019-04-21 | Outpatient (CLI) | payer MEDICARE, MEDICAID ==
[~2019-04-21] MED LIST changes: +AMBIEN 10MG10 MG PO
== END ==
LOC: MC.RAD 10:27
DX: Z12.31 Encounter for screening mammogram for malignant neoplasm of breast (principal)

== ENCOUNTER 2019-10-18 17:13 | Emergency (ER) | payer MEDICARE, MEDICAID ==
[~2019-10-18] VITALS: Ht 160 cm; Wt 54.5 kg
[2019-10-18 17:19] VITALS: TEMP 97.5
[2019-10-18 17:49] LABS: BASO % 0.3 % (0.0-2.0); EOS % 0.3 % (0-4.0); GRAN # 9.3 (1.4-6.5); GRAN % 83.9 % (42.2-75.2); HEMATOCRIT 47.7 % (37.0-47.0); HEMOGLOBIN 16.1 g/dl (12.5-16.0); LYMPH # 1.3 (1.2-3.4); LYMPH % 11.6 % (20.0-51.0); MEAN CELL VOLUME 87 fl (80.0-100.0); MEAN CORPUSCULAR HEMOGLOBIN 29 pg (27.0-31.0); MEAN CORPUSCULAR HGB CONC 34 g/dl (33.0-37.0); MEAN PLATELET VOLUME 12.1 fl (7.4-10.4); MONO # 0.4 (0.1-0.6); MONO % 3.6 % (1.7-9.3); PLATELET COUNT 228 K/mm3 (130-400); RED BLOOD COUNT 5.47 M/mm3 (4.10-5.30); REDCELL DISTRIBUTION WIDTH-CV 12.2 % (11.5-14.5)
[2019-10-18 18:05] LABS: ALBUMIN 4.3 gm/dL (3.5-5.0); BILIRUBIN,TOTAL 1.1 mg/dL (0.0-1.0); C-REACTIVE PROTEIN 1.1 mg/dL (0.0-0.9); CALCIUM 9.7 mg/dL (8.4-10.2); CREATININE, serum 0.68 (0.52-1.25); TOTAL PROTEIN 7.9 gm/dL (6.4-8.2)
[2019-10-18 18:31] LABS: COLLECTION METHOD CLEAN CATCH
[2019-10-18 18:39] LABS: MUCOUS Present /lpf; PH 6 (5-8); SQUAMOUS EPITHELIAL 0-2 /hpf; URINE APPEARANCE Hazy; URINE BACTERIA Rare /hpf; URINE BILIRUBIN Negative (NEGATIVE); URINE BLOOD Negative (NEGATIVE); URINE COLOR Yellow; URINE GLUCOSE Negative (NEGATIVE); URINE KETONE 2+ (NEGATIVE); URINE LEUKOCYTE ESTERASE Negative (NEGATIVE); URINE NITRATE Negative (NEGATIVE); URINE PROTEIN(semi-quant) 1+ (NEGATIVE); URINE RBC 0-2 /hpf; URINE UROBILINOGEN Negative (NEGATIVE)
[2019-10-18 18:58] VITALS: BP 105/58
[2019-10-18] MEDS ORDERED: PRILOSEC 20MG20 MG PO (19:08)
[2019-10-18 19:24] VITALS: PULSE 68
== END 2019-10-18 19:24 | disposition home or self-care (01) ==
LOC: COL.ER 17:13
PROVIDERS: Physician Assistant
DX: K52.9 Noninfective gastroenteritis and colitis, unspecified (principal); M54.9 Dorsalgia, unspecified; G89.29 Other chronic pain; J45.909 Unspecified asthma, uncomplicated; F31.9 Bipolar disorder, unspecified; Z87.891 Personal history of nicotine dependence; Z86.69 Personal history of other diseases of the nervous system and sense organs; Z32.02 Encounter for pregnancy test, result negative; Z79.899 Other long term (current) drug therapy; Z79.51 Long term (current) use of inhaled steroids
CPT/HCPCS: C9113; J1170; J2405; J7030

== ENCOUNTER 2020-04-25 17:33 | Emergency (ER) | payer MEDICARE, MEDICAID ==
[~2020-04-25] VITALS: Ht 160 cm; Wt 56.8 kg
[~2020-04-25 17:33] MED LIST changes: +PRILOSEC 20MG20 MG PO
[2020-04-25 17:43] VITALS: BP 106/68; PULSE 82; TEMP 98.1
== END 2020-04-25 20:21 | disposition left against medical advice (07) ==
LOC: COL.ER 17:33
DX: R11.10 Vomiting, unspecified (principal); R10.9 Unspecified abdominal pain; Z53.29 Procedure and treatment not carried out because of patient's decision for other reasons; Z88.6 Allergy status to analgesic agent

== ENCOUNTER → 2020-05-27 | Outpatient (CLI) | payer MEDICARE | LOC: MC.RAD 13:15 | DX: Z12.31 Encounter for screening mammogram for malignant neoplasm of breast (principal) ==

== ENCOUNTER 2020-07-24 18:30 | Emergency (ER) | payer MEDICARE ==
[~2020-07-24] VITALS: Ht 162.6 cm; Wt 54.5 kg
[2020-07-24 18:33] VITALS: BP 115/71; TEMP 98.5
[2020-07-24 20:59] VITALS: PULSE 85
== END 2020-07-24 21:00 | disposition home or self-care (01) ==
LOC: COL.ER 18:30
DX: R51.9 Headache, unspecified (principal); G40.909 Epilepsy, unspecified, not intractable, without status epilepticus; F31.9 Bipolar disorder, unspecified; J45.909 Unspecified asthma, uncomplicated; Z86.69 Personal history of other diseases of the nervous system and sense organs; Z88.6 Allergy status to analgesic agent; Z87.891 Personal history of nicotine dependence
CPT/HCPCS: J1200

== ENCOUNTER 2021-04-17 15:15 | Outpatient (RCR) | payer MEDICARE ==
[2021-04-27] MEDS ORDERED: NALOXONE (13:51)
[2021-04-27] MEDS ORDERED: LATUDA40 MG PO (13:51)
[2021-04-27] MEDS ORDERED: BUPRENORPHINE (13:51)
== END 2021-04-28 | disposition home or self-care (01) ==
LOC: MKS.ESL.PT
DX: G89.4 Chronic pain syndrome (principal)

== ENCOUNTER 2021-04-27 12:22 | Emergency (ER) | payer MEDICARE ==
[~2021-04-27] VITALS: Ht 160 cm; Wt 56.8 kg
[2021-04-27 13:42] VITALS: TEMP 98.1
[2021-04-27] MEDS ORDERED: BUPRENORPHINE (13:51)
[2021-04-27] MEDS ORDERED: NALOXONE (13:51)
[2021-04-27] MEDS ORDERED: LATUDA40 MG PO (13:51)
[2021-04-27 14:20] LABS: COLLECTION METHOD CLEAN CATCH
[2021-04-27 14:23] LABS: HEMATOCRIT 43.8 % (37.0-47.0); HEMOGLOBIN 14.5 g/dl (12.5-16.0); MEAN CELL VOLUME 89 fl (80.0-100.0); MEAN CORPUSCULAR HEMOGLOBIN 30 pg (27-31); MEAN CORPUSCULAR HGB CONC 33 g/dl (33.0-37.0); MEAN PLATELET VOLUME 11.9 fl (7.4-10.4); PLATELET COUNT 173 K/mm3 (130-400); RED BLOOD COUNT 4.92 M/mm3 (4.10-5.30); REDCELL DISTRIBUTION WIDTH-CV 11.9 % (11.5-14.5)
[2021-04-27 14:26] LABS: MUCOUS Present (NOT PRESENT); PH 8 (5-8); SQUAMOUS EPITHELIAL 0-2 /hpf (0-10); URINE APPEARANCE Clear (CLEAR/HAZY); URINE BACTERIA Rare /hpf (NONE SEEN); URINE BILIRUBIN Negative (NEGATIVE); URINE BLOOD Negative (NEGATIVE); URINE COLOR Yellow (YELLOW); URINE GLUCOSE Negative (NEGATIVE); URINE KETONE 1+ (NEGATIVE); URINE LEUKOCYTE ESTERASE Negative (NEGATIVE); URINE NITRATE Negative (NEGATIVE); URINE PROTEIN(semi-quant) 1+ (NEGATIVE); URINE RBC 0-2 /hpf (0-2); URINE UROBILINOGEN Negative (NEGATIVE)
[2021-04-27 14:44] LABS: LYMPHOCYTE 6 % (20.0-51.0); NEUTROPHILS 90 % (42.0-75.2)
[2021-04-27 14:45] LABS: ALANINE AMINOTRANSFERASE 11 U/L (0-55); ALKALINE PHOSPHATASE 80 U/L (40-150); AST,SGOT 15 U/L (5-34); BILIRUBIN,TOTAL 0.5 mg/dL (0.2-1.2); BLOOD UREA NITROGEN 9 mg/dL (7-19); CARBON DIOXIDE 28 mmol/L (22-29); CHLORIDE 105 mmol/L (98-107); CREATININE, serum 0.76 mg/dL (0.57-1.11); GLUCOSE 106 mg/dL (70-99); LIPASE < 10 U/L (8-78); POTASSIUM 3.9 mmol/L (3.5-4.5); SODIUM 142 mmol/L (136-145); TOTAL PROTEIN 7.2 gm/dL (6.2-8.1)
[2021-04-27 14:46] LABS: PLATELET ESTIMATE NORMAL (NORMAL)
[2021-04-27 14:47] LABS: ANION GAP 9 mmol/L (7-16)
[2021-04-27 17:18] VITALS: BP 130/79; PULSE 83
== END 2021-04-27 17:18 | disposition home or self-care (01) ==
LOC: COL.ER 12:22
PROVIDERS: Physician Assistant
DX: K52.9 Noninfective gastroenteritis and colitis, unspecified (principal); Z32.02 Encounter for pregnancy test, result negative; G40.909 Epilepsy, unspecified, not intractable, without status epilepticus; F31.9 Bipolar disorder, unspecified; J45.909 Unspecified asthma, uncomplicated; Z79.899 Other long term (current) drug therapy
CPT/HCPCS: J1885; J7030; Q9967

== ENCOUNTER 2021-11-24 13:45 | Outpatient (RCR) | payer MEDICARE, MEDICAID ==
[~2021-11-24 13:45] MED LIST changes: +BUPRENORPHINE; +BUPRENORPHINE BC; +DESYREL DIVIDO150 M1 PO; +LATUDA40 MG PO; +NALOXONE; +NALOXONE BC; +REXULTI1 MG PO
== END 2021-11-26 | disposition home or self-care (01) ==
LOC: MKS.ESL.OT
DX: M25.531 Pain in right wrist (principal); M25.532 Pain in left wrist

== ENCOUNTER 2021-12-08 12:45 | Outpatient (RCR) | payer MEDICARE, MEDICAID | END 2021-12-27 | disposition home or self-care (01) | LOC: MKS.ESL.PT | DX: M25.512 Pain in left shoulder (principal) ==

== ENCOUNTER 2021-12-25 15:15 | Outpatient (RCR) | payer MEDICARE, MEDICAID | END 2021-12-27 | disposition home or self-care (01) | LOC: MKS.ESL.OT | DX: M25.532 Pain in left wrist (principal) ==

== ENCOUNTER 2022-02-09 14:00 | Outpatient (RCR) | payer MEDICARE, MEDICAID ==
[2022-02-18] MEDS ORDERED: DECADRON 4MG TAB4 MG PO (10:44)
[2022-02-18] MEDS ORDERED: ZITHROMAX TRI-500 MG PO (10:44)
== END 2022-02-26 | disposition home or self-care (01) ==
LOC: MKS.ESL.OT
DX: M25.531 Pain in right wrist (principal); M25.532 Pain in left wrist

== ENCOUNTER → 2023-12-26 | Outpatient (CLI) | payer MEDICARE, MEDICAID ==
[~2023-12-26] MED LIST changes: +DECADRON 4MG TAB4 MG PO; +ZITHROMAX TRI-500 MG PO
== END ==
LOC: COL.RAD 06:53
DX: K86.89 Other specified diseases of pancreas (principal)

== ENCOUNTER → 2024-02-14 | Outpatient (CLI) | payer MEDICARE, MEDICAID | LOC: COL.RAD 09:54 | DX: R93.5 Abnormal findings on diagnostic imaging of other abdominal regions, including retroperitoneum (principal) ==